=== PATIENT | male | born 1985 | race Caucasian/White ===

== ENCOUNTER 2021-11-26 21:00 | Emergency (ER) | payer BC, MEDICAID ==
[2021-11-26 21:30] LABS: BASOPHILS # (AUTO) 0.1 10^3/uL (0.0-0.1); EOSINOPHILS # (AUTO) 0.5 10^3/uL (0.0-0.7); EOSINOPHILS % (AUTO) 6.6 %; HCT - HEMATOCRIT 42.7 % (42.0-52.0); HGB - HEMOGLOBIN 14.4 g/dL (14.0-18.0); LYMPHOCYTES # (AUTO) 3.2 10^3/uL (1.5-3.5); LYMPHOCYTES % (AUTO) 39.3 %; MEAN CORPUSCULAR HEMOGLOBIN 30.7 pg (27.0-31.0); MEAN CORPUSCULAR HGB CONC 33.7 g/dL (32.0-36.0); MEAN PLATELET VOLUME 9.3 fL (7.4-11.4); MONOCYTES # (AUTO) 0.7 10^3/uL (0.0-1.0); MONOCYTES % (AUTO) 8.4 %; NEUTROPHILS # (AUTO) 3.6 10^3/uL (1.5-6.6); NEUTROPHILS % (AUTO) 44.6 %; PLT - PLATELET COUNT 209 10^3/uL (130-450); RED BLOOD COUNT 4.69 10^6/uL (4.70-6.10); RED CELL DISTRIBUTION WIDTH 12.4 % (12.0-15.0); WHITE BLOOD COUNT 8.2 x10^3/uL (4.8-10.8)
--- NOTE | 2021-11-26 21:30 | XRAY Report ---
PROCEDURE: Chest 1 View X-Ray INDICATIONS: Chest pain TECHNIQUE: One view of the chest was acquired. COMPARISON: None FINDINGS: Surgical changes and devices: None. Lungs and pleura: No pleural effusions or pneumothorax. Lungs are clear. Mediastinum: Mediastinal contours appear normal. Heart size is normal. Bones and chest wall: No suspicious bony lesions. Overlying soft tissues appear unremarkable. Old right fifth rib fracture. IMPRESSION: No acute pulmonary process. Reviewed by: Dian Weiss MD on 11/26/2021 9:29 PM [facility] Approved by: Dian Weiss MD on 11/26/2021 9:29 PM [facility] Station ID: [id number]
[2021-11-26 21:38] LABS: ALBUMIN 4.3 g/dL (3.2-5.5); ALBUMIN/GLOBULIN RATIO 1.5 (1.0-2.2); CALCIUM 9.5 mg/dL (8.5-10.3); POTASSIUM 3.8 mmol/L (3.5-5.0); TOTAL PROTEIN 7.1 g/dL (6.7-8.2)
--- NOTE | 2021-11-26 22:32 | ED Physician Documentation ---
History of Present Illness - Stated complaint Stated Complaint: HEART PALPITATIONS - Chief complaint Chief Complaint: Cardiac - History obtained from History obtained from: Patient - Additonal information Additional information: 36-year-old man, previously healthy, presents with palpitations intermittent over the past few years, acutely worsening this week. Patient states that he had an episode tonight that was brief, self-limiting, associated with sensation of anxiety after it occurred, as well as hot flash and tingling. former smoker. denies FH heart disease or arrhythmia. otherwise asymptomatic. Review of Systems Ten Systems: 10 systems reviewed and negative Constitutional: denies: Fever, Chills Cardiac: reports: Palpitations. denies: Chest pain / pressure Respiratory: denies: Dyspnea PD PAST MEDICAL HISTORY - Past Surgical History Past Surgical History: No - Present Medications Home Medications: Ambulatory Orders Medication Instructions Recorded Confirmed No Known Home Medications 03/12/15 03/12/15 - Allergies Allergies/Adverse Reactions: Allergies Allergy/AdvReac Type Severity Reaction Status Date / Time No Known Drug Allergies Allergy Verified 03/12/15 15:21 - Social History Does the pt smoke?: Yes Smoking Status: Current every day smoker Does the pt drink ETOH?: Yes Does the pt have substance abuse?: Yes - Immunizations Immunizations are current?: No PD ED PE NORMAL - Vitals Vital signs reviewed: Yes - General General: Alert and oriented X 3, No acute distress, Well developed/nourished - HEENT HEENT: Atraumatic, PERRL, EOMI - Neck Neck: Supple, no meningeal sign - Cardiac Cardiac: RRR, No murmur - Respiratory Respiratory: No respiratory distress, Clear bilaterally - Abdomen Abdomen: Non tender, Non distended - Derm Derm: Normal color - Extremities Extremities: No deformity, No edema - Neuro Neuro: No motor deficit, No sensory deficit - Psych Psych: Normal mood, Normal affect Results - Vitals Vitals: Vital Signs - 24 hr 11/26/21 11/26/21 11/27/21 21:03 22:53 00:00 Temperature 36.5 C 36.6 C Heart Rate 80 61 56 L Respiratory 16 18 Rate Blood Pressure 122/67 115/64 102/63 O2 Saturation 98 97 97 Oxygen O2 Source Room air - EKG (time done) 2102 Rate: Rate (enter#) (69) Rhythm: NSR [place]: Normal Intervals: Normal TN QRS: Normal Ischemia: Other (old anteroseptal changes noted on prior ekg 03/12/15) - Labs Labs: Laboratory Tests 11/26/21 11/26/21 11/26/21 21:17 21:17 21:17 WBC 8.2 RBC 4.69 L Hgb 14.4 Hct 42.7 MCV 91.0 MCH 30.7 MCHC 33.7 RDW 12.4 Plt Count 209 MPV 9.3 Neut # (Auto) 3.6 Lymph # (Auto) 3.2 [place] # (Auto) 0.7 Eos # (Auto) 0.5 Baso # (Auto) 0.1 Absolute Nucleated RBC 0.00 Nucleated RBC % 0.0 Sodium 137 Potassium 3.8 Chloride 102 Carbon Dioxide 28 Anion Gap 7.0 BUN 18 Creatinine 1.0 Estimated GFR (MDRD) 84 L Glucose 126 H Calcium 9.5 Total Bilirubin 1.0 AST 20 ALT 20 Alkaline Phosphatase 43 Troponin I High Sens 2.7 Total Protein 7.1 Albumin 4.3 Globulin 2.8 Albumin/Globulin Ratio 1.5 Lipase 39 11/26/21 23:40 WBC RBC Hgb Hct MCV MCH MCHC RDW Plt Count MPV Neut # (Auto) Lymph # (Auto) [place] # (Auto) Eos # (Auto) Baso # (Auto) Absolute Nucleated RBC Nucleated RBC % Sodium Potassium Chloride Carbon Dioxide Anion Gap BUN Creatinine Estimated GFR (MDRD) Glucose Calcium Total Bilirubin AST ALT Alkaline Phosphatase Troponin I High Sens < 2.3 L Total Protein Albumin Globulin Albumin/Globulin Ratio Lipase PD MEDICAL DECISION MAKING - ED course ED course: 36-year-old man presented with palpitations. Denied chest pain or shortness of breath. Heart score 1 (former smoker). Patient to be discharged with primary care follow-up. Return precautions given. Departure - Departure Disposition: Home, Self Care Clinical Impression: Palpitations Condition: Good Instructions: ED Palpitations Follow-Up: Onesimo Teixeira DO [Provider Admit Priv/Credential] - Bola Siddiqui MD [Provider Admit Priv/Credential] - Tristen Aj MD [Credentialed Staff Provider] - Comments: You were seen in the emergency department for evaluation of palpitations. Your chest x-ray, EKG, and blood work showed no emergent findings. You should follow- up with the primary doctor (I have provided a couple of recommendations). Return to the emergency department if you have any new or worsening symptoms or other concerns.
[2021-11-27 01:01] VITALS: BP 105/63
== END 2021-11-27 01:04 | disposition home or self-care (01) ==
LOC: ED 21:00
DX: R00.2 Palpitations (principal); Z87.891 Personal history of nicotine dependence
CPT/HCPCS: 36415; 80053; 83690; 84484; 85025; 93005; 99283; 99284